=== PATIENT | male | born 1955 | race Caucasian/White ===

== ENCOUNTER 2018-12-09 07:45 | Day surgery (SDC) | payer BC ==
[~2018-12-09 07:45] MED LIST: ACETAMINOPHEN 1,000 MG/100 ML BTL IV ONE; CEFAZOLIN 2 Gram 2 GM/50 ML BAG IVPB ONE; CELECOXIB 100 MG CAPSULE PO ONE; FAMOTIDINE 20MG TABLET PO ONE; MECLIZINE 25 MG TABLET PO ONE; METOCLOPRAMIDE 10 MG TABLET PO ONE; VANCOMYCIN HCL 1,000 MG in DEXTROSE 5 % IN WATER 250 ML IVPB ONE
[2018-12-09] MEDS ORDERED: PROPOFOL 10 MG/ML VIAL IV ONE (07:46)
[2018-12-09] MEDS ORDERED: TRANEXAMIC ACID 1,000 MG/10 ML ML IV ONE ×2 (07:46)
[2018-12-09] MEDS ORDERED: ROPIVACAINE HCL (NAROPIN) /PF 5MG/ML 20ML VIAL IV ONE (07:46)
[2018-12-09] MEDS ORDERED: BUPIVACAINE LIPOSOME 266MG/20ML VIAL IV ONE (07:46)
[2018-12-09] MEDS ORDERED: MIDAZOLAM HCL 2MG/2ML VIAL IV ONE (07:46)
[2018-12-09] MEDS ORDERED: VANCOMYCIN HCL 1 GM VIAL IVPB ONE ×2 (07:46)
[2018-12-09] MEDS ORDERED: BUPIVACAINE 0.5% W/EPI MPF 30 ML VIAL IVP ONE (07:46)
[2018-12-09] MEDS ORDERED: DEXAMETHASONE 4 MG/ML 1ML VIAL IVP ONE (07:46)
[2018-12-09] MEDS ORDERED: LIDOCAINE 2% MDV (20MG/ML) 20ML VIAL IV ONE (07:46)
[2018-12-09] MEDS ORDERED: ONDANSETRON HCL IV 4 MG/2 ML VIAL IVP PRN (08:26)
[2018-12-09] MEDS ORDERED: AL HYDROX/MAG HYDROX 30ML UD PO PRN (08:26)
[2018-12-09] MEDS ORDERED: HYDROCODONE/APAP 7.5/325MG TABLET PO PRN (08:26)
[2018-12-09] MEDS ORDERED: ZOLPIDEM TARTRATE 5 MG TABLET PO PRN (08:26)
[2018-12-09] MEDS ORDERED: HYDROMORPHONE HCL 2 MG/ML VIAL IM PRN ×2 (08:26)
[2018-12-09] MEDS ORDERED: METOCLOPRAMIDE HCL 10 MG/2 ML VIAL IVP PRN (08:26)
[2018-12-09] MEDS ORDERED: HYDROCODONE/APAP 5/325MG TABLET PO PRN ×2 (08:26)
[2018-12-09] MEDS ORDERED: ACETAMINOPHEN W/ CODEINE 300MG/30MG TABLET PO PRN ×2 (08:26)
[2018-12-09] MEDS ORDERED: NALOXONE 0.4 MG/1 ML VIAL IVP PRN (08:26)
[2018-12-09] MEDS ORDERED: BISACODYL 10 MG SUPP RC PRN (08:26)
[2018-12-09] MEDS ORDERED: PROMETHAZINE HCL 12.5 MG in 0.9 % SODIUM CHLORIDE 100ML 50 ML IVPB PRN (08:26)
[2018-12-09] MEDS ORDERED: ACETAMINOPHEN W/ CODEINE 300MG/60MG TABLET PO PRN ×2 (08:26)
[2018-12-09] MEDS ORDERED: MAGNESIUM HYDROXIDE 30 ML UDC PO PRN (08:26)
[2018-12-09] MEDS ORDERED: TRAMADOL HCL 50 MG TABLET PO PRN ×2 (08:26)
[2018-12-09] MEDS ORDERED: KETOROLAC 30 MG/ML VIAL IVP PRN ×2 (08:26)
[2018-12-09] MEDS ORDERED: ACETAMINOPHEN 325 MG TAB PO PRN (08:26)
[2018-12-09] MEDS ORDERED: DIPHENHYDRAMINE HCL 25 MG CAPSULE PO PRN (08:26)
[2018-12-09 08:38] LABS: ABO GROUP A; ANTIBODY SCREEN NEGATIVE (NEGATIVE); RH TYPE POSITIVE
[2018-12-09] MEDS: DOCUSATE SODIUM 100 MG CAPSULE PO SCH ×2 (14:02→21:19)
[2018-12-09] MEDS: FERROUS SULFATE 325 MG TAB PO SCH ×2 (14:02→21:20)
[2018-12-09] MEDS ORDERED: TAMSULOSIN HCL 0.4 MG CAP.ER.24H PO ONE (14:54)
--- NOTE | 2018-12-09 15:38 | Rehab Evaluation ---
Patient Information - Patient Information Diagnosis: R TKA Ordered Treatment: PT Evaluate and Treat Status: Initial Evaluation Surgery: Yes (R TKA) Date of Surgery: 12/09/18 Past Medical/Surgical Hx: PAST MEDICAL/SURGICAL HISTORY Past Surgical History RIGHT SHOULDER SX LITHOTRIPSY A FEW TIMES CARDIAC STENT 7 YEARS AGO PMH - Respiratory Hx Respiratory Disorders Yes Comment: ALLERGIES PMH - Cardiovascular Hx Cardiovascular Disorders Yes Hx Abnormal EKG Yes Hx Cardiac Catheterization Yes Hx Heart Attack Yes: POSSIBLY 7 YEARS AGO Hx Coronary Stent Yes: X'S 1 7 YEARS AGO Exercise Tolerance Good PMH - Neuro Hx Neurological Disorders No PMH - GI Hx Gastrointestinal Disorders No PMH - Hx Genitourinary Disorders No PMH - Endocrine Hx Endocrine Disorders No PMH - Musculoskeletal Hx Musculoskeletal Disorders Yes Hx Arthritis Yes: RIGHT KNEE PMH - Psych Hx Psychiatric Problems No PMH - Hematology/Oncology Hx Hematology/Oncology No Disorders Premorbid Status: Detail (The patient was independent with mobility prior to surgery.) Social History: Detail (The patient lives in a one story house with a basement with 3 steps at the enterance with no handrails. Patient does state that he has a cabinet that he can push up on. The patient's home has two bathrooms: one on the main floor with a tub/shower combination and elevated toilet and one half bathroom in the basement with a walk in shower. No grab bars are present, however the patient has a tub bench. The patient also has a 2 wheeled walker, quad cane and crutches.) Precautions: [place], Fall, Other (WBAT on the R LE.) - Time With Patient Total Time Spent With Patient (Min): 30 Treatment Procedures: Detail (Initial evaluation, gait training) Subjective Information - Subjective Information Per Patient (The patient had complaints of R knee pain level 4 using 0-10 pain scale.) Objective Data - Mental Status Patient Orientation: Oriented x3 - Visual Perception Appears within normal limits for therapeutic activities - ROM Not within normal limits (The patient's R knee AROM was limited as to be expected s/p surgery. All other LE AROM was WNL.) - Strength/Tone Not within normal limits (The patient's R LE strength was not tested secondary to s/p surgery, however strength was functional ie: patient was able to complete a SLR. The patient's L LE strength was WNL.) - Bed Mobility Independent (The patient was independent with supine to and from sit transfer and scooting up in bed.) - Transfers Independent (The patient was independent with sit to and from stand transfer with verbal cues to reach back for the surface.) - Balance Balance Sitting: Good Balance Standing: Good - Gait Detail (The patient ambulated with front wheeled walker a distance of 65 feet x 1 WBAT on the R LE with supervision for safety only.) Therapy Assessment - Therapy Assessment Detail (The patient was independent with bed mobility, transfers and ambulates with supervision for safety only. Feel the patient will progress well with mobility. Due to patient's stable condition PT evaluation complexity is rated as low.) Problem List - Problem List Physical Therapy Problem List: Detail (1) Decreased R knee AROM 2) Decreased R LE strength) Goals - Goals Physical Therapy Goals: 1) The patient will be independent with TKA HEP. 2) The patient will ambulate on stairs with supervision for safety using proper technique. 3) The patient will be independent with ambulation with appropriate assistive device WBAT on the R LE household distances. Prognosis - Prognosis Good Plan - Plan Physical Therapy Plan: PT 1-2 sessions for gait training and instruction in TKA HEP.
[2018-12-09] MEDS: DEXTROSE 5 % AND 0.9 % NACL 1,000 ML IV PRN (18:23)
[2018-12-09] MEDS: HYDROCODONE/APAP 7.5/325MG TABLET PO PRN (21:19)
[2018-12-09] MEDS: VANCOMYCIN HCL 1,000 MG in DEXTROSE 5 % IN WATER 250 ML IVPB SCH ×2 (21:20)
[2018-12-10] MEDS: DEXTROSE 5 % AND 0.9 % NACL 1,000 ML IV PRN (01:14)
[2018-12-10] MEDS: HYDROCODONE/APAP 7.5/325MG TABLET PO PRN ×2 (01:25→07:19)
[2018-12-10 06:18] LABS: HEMATOCRIT 43.3 % (42.0-52.0); HEMOGLOBIN 14.7 gm/dl (14.0-18.0)
[2018-12-10] MEDS: DOCUSATE SODIUM 100 MG CAPSULE PO SCH ×2 (07:20→09:10)
[2018-12-10] MEDS: FERROUS SULFATE 325 MG TAB PO SCH ×2 (07:20→09:11)
--- NOTE | 2018-12-10 08:00 | Rehab Evaluation ---
Patient Information - Patient Information Diagnosis: R TKA Ordered Treatment: OT Evaluate and Treat Status: Initial Evaluation Surgery: Yes (R TKA) Date of Surgery: 12/09/18 Past Medical/Surgical Hx: PAST MEDICAL/SURGICAL HISTORY Past Surgical History RIGHT SHOULDER SX LITHOTRIPSY A FEW TIMES CARDIAC STENT 7 YEARS AGO PMH - Respiratory Hx Respiratory Disorders Yes Comment: ALLERGIES PMH - Cardiovascular Hx Cardiovascular Disorders Yes Hx Abnormal EKG Yes Hx Cardiac Catheterization Yes Hx Heart Attack Yes: POSSIBLY 7 YEARS AGO Hx Coronary Stent Yes: X'S 1 7 YEARS AGO Exercise Tolerance Good PMH - Neuro Hx Neurological Disorders No PMH - GI Hx Gastrointestinal Disorders No PMH - Hx Genitourinary Disorders No PMH - Endocrine Hx Endocrine Disorders No PMH - Musculoskeletal Hx Musculoskeletal Disorders Yes Hx Arthritis Yes: RIGHT KNEE PMH - Psych Hx Psychiatric Problems No PMH - Hematology/Oncology Hx Hematology/Oncology No Disorders Premorbid Status: Detail (The patient was independent with mobility prior to surgery. His sister completes all home mgmt, meal prep and laundry tasks. Pt works time clerk.) Social History: Detail (The patient lives with his sister in a one story house with a basement with 3 steps at the entrance with no handrails. Patient does state that he has a cabinet that he can push up on. He states that he generally stays in the basement "man cave" The patient's home has two bathrooms: one on the main floor with a tub/shower combination and elevated toilet and one half bathroom in the basement with a walk in shower. No grab bars are present, however the patient has a tub bench. The patient also has a 2 wheeled walker, quad cane, toilet riser, and crutches.) Precautions: [place], Fall, Other (WBAT on the R LE.) - Time With Patient Total Time Spent With Patient (Min): 30 Treatment Procedures: Detail (OT eval low complexity) Subjective Information - Subjective Information Per Patient Objective Data - Pain Pain Present: Yes (2-12/22) - Mental Status Patient Orientation: Oriented x3 - Visual Perception Appears within normal limits for therapeutic activities - ROM Within normal limits (Travis UE AROM WNL) - Strength/Tone Within normal limits (Travis UE strength WNL) - Coordination Appears within normal limits for therapeutic activities - Transfers Independent (Ind with sit to stand from chair height.) - Balance Balance Sitting: Good Balance Standing: Good - Sensation Intact - Gait Detail (Pt ambulating in room and hallway with 2 wheeled walker and SBA.) - ADL's/IADL's Detail (Pt educated re: modified LE dressing techniques. He was already dressed but he was able to verbalize modified technique for pants. Pt was able to demonstrate Ind with doffing slipper socks and donning socks and velcro shoes. Reviewed kitchen and shower safety and modifications, pt verbalized understanding.) Therapy Assessment - Therapy Assessment Detail (Pt is Ind with modified LE dressing techniques.) Problem List - Problem List Physical Therapy Problem List: Detail (1) Decreased R knee AROM 2) Decreased R LE strength) Occupational Therapy Problem List: Detail (No current IP OT problems identified. ) Goals - Goals Physical Therapy Goals: 1) The patient will be independent with TKA HEP. 2) The patient will ambulate on stairs with supervision for safety using proper technique. 3) The patient will be independent with ambulation with appropriate assistive device WBAT on the R LE household distances. Occupational Therapy Goals: No current IP OT goals identified. Prognosis - Prognosis Good Plan - Plan Physical Therapy Plan: PT 1-2 sessions for gait training and instruction in TKA HEP. Occupational Therapy Plan: No further IP OT recommended. Thank you for this referral.
[2018-12-10] MEDS: VANCOMYCIN HCL 1,000 MG in DEXTROSE 5 % IN WATER 250 ML IVPB SCH ×2 (08:01)
[2018-12-10] MEDS: CELECOXIB 100 MG CAPSULE PO SCH ×2 (08:15→09:10)
--- NOTE | 2018-12-10 09:33 | Physical Therapy Tx Note ---
Physical Therapy Tx Note - Treatment Note Tolerated: Good Total Time Spent With Patient: 25 Physical Therapy Tx Note: Detail (The patient was up in chair when PT arrived. The patient completed the following TKA exercises using proper technique and with good understanding: seated and supine heel slides, ankle pumps, quad sets, hamstring sets, SLR and gluteal sets. The patient ambulated independently with 2 wheeled walker a distance of 200 feet x 1 WBAT on R LE. The patient ambulated on 3 steps and 7 steps with use of one railing and folded walker using proper technique independently. The patient has met all inpatient PT goals and is discharged from inpatient PT. The patient is to receive Home PT .) Physical Therapy Problem List: Detail (1) Decreased R knee AROM 2) Decreased R LE strength) Physical Therapy Goals: 1) The patient will be independent with TKA HEP (Goal Met). 2) The patient will ambulate on stairs with supervision for safety using proper technique. (Goal Met). 3) The patient will be independent with ambulation with appropriate assistive device WBAT on the R LE household distances. (Goal Met) Physical Therapy Plan: The patient is discharged from inpatient PT and is to continue with Home PT.
[2018-12-10] MEDS ORDERED: RIVAROXABAN 10 MG TABLET PO SCH (10:00)
--- NOTE | 2018-12-10 20:37 | Operative Note ---
DATE OF SURGERY: 12/09/2018 PREOPERATIVE DIAGNOSIS: END-STAGE RIGHT KNEE ARTHROSIS. POSTOPERATIVE DIAGNOSIS: END-STAGE RIGHT KNEE ARTHROSIS. PROCEDURE: RIGHT TOTAL KNEE ARTHROPLASTY. SURGEON: MATTHEW GARCIA M.D. ANESTHESIA: SPINAL. EDDI SANCHEZ CRNA. COMPLICATIONS: NONE. BLOOD LOSS: MINIMAL. TOURNIQUET TIME: 75 MINUTES. COMPONENTS PLACED: [employer] II Oxinium total knee arthroplasty system size 9 femoral component, size 8 tibial baseplate, an 18 mm thick tibial poly insert, and a 38 mm cemented patellar component. INDICATION FOR OPERATION: This is a 63-year-old male who has had persistent pain and dysfunction in his knee for several years and has failed nonoperative treatment. He is scheduled for a total knee arthroplasty. I explained the risks and benefits thoroughly in detail for the diagnosis and procedures including but not limited to infection, nerve injury, vessel injury, persistent pain, stiffness, numbness, and tingling in his knee, periprosthetic fracture and need for resection arthroplasty should the components become infected or loosened, blood clot, and need for further procedures, need for anticoagulation to prevent blood clots and the risks associated with these medications and all of his questions were answered. Rehab and course were outlined and he agreed to proceed. PROCEDURE: The patient was brought to the O.R. and placed in the supine position after spinal anesthesia was induced and the right lower extremity and knee were prepped and draped in sterile fashion. The right knee was prepped again with ChloraPrep after it was draped. Intraoperative time-out was performed. Next, a standard anterior approach was marked over the knee after the leg was exsanguinated with an Esmarch. The incision was infiltrated with part of a mixture of 0.5% Marcaine with Epinephrine, 2 gm of tranexamic acid, and Exparel mixture. The tourniquet was inflated to 215 mmHg pressure.. Next, the skin and subcutaneous tissue were dissected down and medial and lateral skin flaps were made. I incised the capsule medially around the medial border of the of the patella to the tibial tubercle. I incised the vastus medialis in line with its fibers in a mid vastus approach. I partially resected the retropatellar fat pad. I elevated the capsule subperiosteally and medially. I resected the ACL. He had [id number] medial compartment arthrosis. We drilled the intercondylar drill hole and inserted the intramedullary guide mary with a 6 degree cutting block. We aligned off the distal femoral condyles. We pinned that in place in the +2 mm position. We cut that flush. Next, we placed the sizing jig on the distal femur and sized to be right on size 9. Through the previously placed pinholes, we placed a size 9 cutting jig. We dialed in the anterior cut so it would come out flush without notching. We cut that cut and then pinned it. We cut the remainder of the chamfer cuts in the usual fashion. Next, attention was turned to the tibia. We placed the external alignment jig of the tibia. We seated the spikes in the intertubercular groove two fingerbreadths distally off the anterior tibial cortex for a slight posterior slope and referenced for a 7 mm cut off the higher medial plateau. We then pinned that in place provisionally with two anterior and posterior pins. We then rechecked alignment of the cutting jig using a drop mary centered on the tibial anatomic axis and cross-pinned the cutting jig to complete its fixation and then cut the tibia. Next, we removed osteophytes from the posterior femoral condyles, checked flexion and extension gaps. He was basically loose in flexion, very loose, several millimeters and extension was tightened up nicely with a size 11 to 13 spacial block. Therefore, then we decided to cut more distal femoral condyle to match up this flexion gap with extension. Next, we placed the distal femoral cutting jig on the femur, aligned it with our resection checking blade, replaced the pins through the femur cutting jig through the previously placed pin holes. We verified that cut. We then moved that up to +4 mm more, so it was at a +6 now. We cross-pinned it and cut the distal femoral condyles. Next, placed the 5-in-1 cutting jig in the distal femoral condyles through the previously placed pin holes again and re-cut the chamfer cuts. Next, we placed the trial size 9 femoral component, centered it, placed the resection collet and reamed out and box osteotomed out the cruciate bone block. Next, we trialed our spacer block now. We basically sized up to a size 18. This allowed for flexion and extension gaps to be equal now allowing us to place a thicker block and spacer in flexion taking up that flexion gap. That was 2 to 3 mm of varus/valgus laxity in flexion and extension. Next, we took the knee into flexion. We sized the tibial baseplate to be a size 8. We replaced all trial components. We set the rotation of the tibial baseplate again in extension using the alignment mary centered on the hip joint and the ankle joint. We marked electrocautery howard on the anterior tibial cortex off the laser howadr on the tibial baseplate. Next, attention was turned to the patella. We measured the patella to be 27 mm. We set the cutting jig at 18 mm to allow for a 9 mm insert. We cut the patella. We chamfered off the lateral patellar facet, rechecked the thickness and it was right on our 18. We sized it to be 38. We drilled three peg holes and did a trial range of motion and mixed cement. The knee tracked nicely hands-free. We had full extension and flexion to 140 degrees. Next, we took the knee into flexion. We seated the tibial baseplate off the previously placed electrocautery howard, pinned it in place, and drilled out and keel-punched the keel hole. We placed bone plugs in the femoral canal hole. We pre-coated both surfaces and impacted down the tibial component first and then the femoral component, taking off excess cement off the edges of the components. We placed the trial tibial poly liner and held the knee in extension and clamped down the patellar component until the cement hardened. Once the cement hardened, we then took the knee into flexion. We distracted the knee with bone hook and sponge. We then injected with several sticks of 0.5% Marcaine with Epinephrine, 2 gm tranexamic acid, and Exparel mixture from the capsule working peripherally to the periosteum, to the vastus medialis and patellar tendon. We then irrigated and impacted down the real tibial poly insert and verified it was interlocked medially and laterally. Final range of motion revealed the same. We closed the knee in flexion using #2 Quill suture, irrigated and closed the skin with #2-0 Vicryl. A sterile dressing was applied and JUAN M wrap. The patient tolerated the procedures well. No intraoperative complications. All sponge, needle, and blade counts were correct. Recovery stable, neurovascularly intact. He will be discharged to the Floor. He will be discharged tomorrow. He will have a CARRI dressing applied prior to discharge and follow-up in two weeks. cc: Dr. Meagan Ku JOB NUMBER: [id number] MTDD
== END 2018-12-10 12:35 | disposition home health service (06) ==
LOC: SUR 07:45 → MEDSURG 12:57 → SUR 12-10 12:35
PROVIDERS: ATTEND Orthopaedic Surgery
DX: M17.11 Unilateral primary osteoarthritis, right knee (principal); I25.10 Atherosclerotic heart disease of native coronary artery without angina pectoris; Z95.5 Presence of coronary angioplasty implant and graft
CPT/HCPCS: 27447; 01402; 64447; 85018; 85014; 86900; 86901; 86850; J3370 ×2; J0690; C9290; J3490; J2795; 76942; 97110; 97530; J7042; J7060